=== PATIENT | female | born 1995 | race American Indian/Alaskan Native ===

== ENCOUNTER 2016-09-11 09:03 | Outpatient (CLI) | payer MEDICAID ==
[2016-09-11] MEDS ORDERED: LACTATED RINGERS 500 ML IV ONE (09:15)
[2016-09-11 09:19] VITALS: BP 100/57
[2016-09-11 09:56] LABS: Bilirubin,Urine NEG (Negative); Blood,Urine NEG (Negative); Ketones,Urine NEG (Negative); Leukocyte Esterase,Urine NEG (Negative); Mucus,Urine 3+ /HPF; Nitrite,Urine NEG (Negative)
== END 2016-09-11 11:40 | disposition home or self-care (01) ==
LOC: TRG 09:03
PROVIDERS: ATTEND Specialist
DX: O26.893 Other specified pregnancy related conditions, third trimester (principal); O47.03 False labor before 37 completed weeks of gestation, third trimester; M54.9 Dorsalgia, unspecified; R10.2 Pelvic and perineal pain; Z3A.33 33 weeks gestation of pregnancy
CPT/HCPCS: 59025; 81001; 96360